=== PATIENT | male | born 1950 | race Caucasian/White ===

== ENCOUNTER 2022-05-18 13:45 | Outpatient (RCR) | payer MEDICARE, BC, SELFPAY ==
--- NOTE | 2022-04-19 09:03 | PT.OPEX ---
PT [place] [facility] Eval PT [facility] Out[facility] Eval Start: 04/19/22 07:45 Freq: Status: Active Protocol: Document 04/19/22 07:46 LUDWIG (Rec: 04/19/22 07:57 LUDWIG [id number]) E-signed By Tosin Godoy, PT Physical Therapy Outpatient Evaluation Insurance Information Recert Due Date 07/12/22 Insurance Name Medicare B,[employer] Medical Diagnosis Right hip bursitis Treating Diagnosis Right hip pain, limited hip ROM, impaired glut strength, antalgic gait, impaired balance Referring MD Kelly Subjective Subjective Jose Maria reports to PT with primary complaint of right hip pain with gradual and insidious onset about 4 weeks ago. He has a history of B RAHAT in 2009 and 2011. He has started to use a SEC for walking assistance as his R leg occasionally feels that it might give out d/t the pain when he is up and walking around however denies any falls or LOB at this time. He notes pain is worse with standing and walking for >10 min and usually goes away with sitting. No pain with sleeping or laying on either side. He is in the middle of being treated for polymyalgia with prednisone. He saw Dr. Kelly 2 weeks ago with repeat x-rays and determined that components are sound. He was diagnosed with right hip bursitis at that time. PMH: polymyalgia, B RAHAT posterior approach for both Pain Comments 8/10 worst walking/standing 1-2/10 sitting/resting Date of Last Physician Visit 04/05/22 Preferred Name Jose Maria Precautions Therapy Limitations/Systems Review Not Limited Objective Other/Pertinent Objective Gait: transitions from using SEC in R and L UE, reverse Trendelenburg R LE, limited terminal hip extension B R>L, limited stance time R LE SL balance: -L level pelvis, 4 sec without UE support -R Trendelenburg stance, unable without UE support Hip ROM R/L: -flexion 90/90 -extension neutral/5 -IR 0/5 -ER 25/30 Aashish test: B (R>L) rectus femoris, TFL and psoas MMT (R/L) -flexion 4-/4 -ER 4-/4+ -abd 4-/4+ -ext 4/4+ TTP R greater trochanter, increased tone R glut med Log roll, EDUARDO/FADIR: - R LE Functional Test Performed & Score LEFS: Assessment Assessment/Impression Patient is a 71 year old male presenting to physical therapy for evaluation and treatment of right hip pain. Patient presents with Right hip pain, limited hip ROM, impaired glut strength, antalgic gait, impaired balance. 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 Patient appears motivated to participate in PT and presents with good prognosis to improve mobility, strength, proprioception and return to functional activities with skilled physical therapy intervention. 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 Patient will be able to stand/ walk for >40 minutes with <1/ 10 pain in order to carry out outdoor chores Patient will demonstrate at least 4+/5 glut med strength in order to improve single leg stance activities and walking Treatment Plan/Direct Interventions Gait Training,Ice/Cold/ Vasopneumatic,Joint Mobilization,Manual Therapy, Neuromuscular Re-ed,Self-Care/ Home Management,Therapeutic Activities,Therapeutic Exercises Frequency/Duration 1x/wk for 6 weeks with additional 4 session prn based on functional progress Patient Will Be Discharged From Therapy Completion of LTG(s), Independent w/HEP, Independently Progressing Evaluation Billing Untimed Code Treatment Minutes 18 Complexity Low Certification Information Initial Certification Date 04/19/22 Ending Certification Date 07/12/22
== END 2022-07-12 12:16 | disposition home or self-care (01) ==
PROVIDERS: PCP Family Medicine; Visit Provider Orthopaedic Surgery
DX: M70.71 Other bursitis of hip, right hip (principal); Z51.89 Encounter for other specified aftercare
CPT/HCPCS: 97110; 97140; 97161; 97535

== ENCOUNTER 2022-05-31 10:57 | Outpatient (CLI) | payer MEDICARE, BC, SELFPAY ==
[2022-05-31 13:38] LABS: Albumin* 4.6 g/dL (3.3-5.0); Chloride* 103 mmol/L (96-114); Sodium* 137 mmol/L (135-149)
[2022-05-31 13:39] LABS: Potassium* 4.6 mmol/L (3.6-5.1)
[2022-05-31 13:40] LABS: Cholesterol* 235 mg/dL (90-199)
[2022-05-31 13:41] LABS: Alanine Aminotransferase* 17 U/L (4-50); Alkaline Phosphatase* 124 U/L (40-150); Aspartate Amino Transferase* 23 U/L (12-35); Bilirubin Total* 0.6 mg/dL (0.1-1.5); Blood Urea Nitrogen* 19 mg/dL (7-30); Carbon Dioxide* 21 mmol/L (20-32); Creatinine* 0.7 mg/dL (0.5-1.5); Estimated Glomerular Filt Rate 97 ml/min; Glucose* 106 mg/dL (60-115); Total Protein* 7.2 g/dL (6.0-8.3); Triglycerides* 194 mg/dL (40-149)
[2022-05-31 13:42] LABS: HDL Cholesterol* 52 mg/dL (>=40); LDL Cholesterol Calculated 144 mg/dL (<100)
== END 2022-05-31 10:58 | disposition home or self-care (01) ==
PROVIDERS: PCP Family Medicine; Visit Provider Family Medicine
DX: Z01.818 Encounter for other preprocedural examination (principal); E78.5 Hyperlipidemia, unspecified; I10 Essential (primary) hypertension
CPT/HCPCS: 80053; 80061

== ENCOUNTER 2022-06-09 11:10 | Day surgery (SDC) | payer MEDICARE, BC, SELFPAY ==
[2022-06-09] MEDS: TETRACAINE 0.5% OPHTH 1 DROP EYE-LEFT (11:42)
[2022-06-09] MEDS: KETOROLAC OPHTH 0.5% 1 DROP EYE-LEFT ×3 (11:45→11:55)
[2022-06-09 11:55] VITALS: BP 172/92; PULSE 94; RESP 18; TEMP 36.9; O2SAT 96; BMI 34.3
[2022-06-09] MEDS: lidocaine HCL 2 % MULTIDOSE 20 ML VIAL 5 ML INJECTION (13:43)
[2022-06-09] MEDS: HYALURONIDASE,OVINE 200 UNIT/ML VIAL INJECTION (13:43)
[2022-06-09] MEDS: TETRACAINE 0.5% OPHTH 2 DROP EYE-LEFT (13:46)
[2022-06-09] MEDS: BALANCED SALT IRRIG SOLN 15 ML EYE-LEFT (13:47)
[2022-06-09] MEDS: BRIMONIDINE TARTRATE 0.2% OPHTH 1 DROP EYE-LEFT (14:06)
--- NOTE | 2022-06-09 14:14 | W.ANESCHARGE ---
Anesthesia Charges Start Date/Time Anesthesia Start Date: 06/09/22 Anesthesia Start Time: 13:28 Stop Date/Time Anesthesia Stop Date: 06/09/22 Anesthesia Stop Time: 14:11 Summary Emergency: No Extremes of Age: Over 69-CPT 78782
[2022-06-09 14:17] VITALS: BP 148/98; PULSE 88; RESP 18; TEMP 36.6; O2SAT 95
--- NOTE | 2022-06-09 14:35 | P.PCN_ITS ---
Procedure Note Date Seen: 06/09/22 Date of procedure: 06/09/[address] [facility] bill your pro fee for this procedure?: No Procedure: NAME OF PROCEDURE Andree phacoemulsification, left eye, with posterior chamber lens implant. PREOPERATIVE DIAGNOSIS Nuclear sclerotic cortical combined cataract, left eye. POSTOPERATIVE DIAGNOSIS Nuclear sclerotic cortical combined cataract, left eye. INDICATIONS FOR PROCEDURE The patient has noted that his vision in the left eye is failing. Severity 8/10. Unable to correct with glasses/contact lenses; has disabling night glare when driving, difficulty reading. Because of this, the patient elected to proceed with surgical repair. I have explained the risks, benefits, alternative treatments to the patient including possible loss of the eye under correction, over correction, need for more surgery. The patient understands, accepts, and elects to proceed with surgical repair. PROCEDURE The left eye was dilated with a combination 1% Mydriacyl, 2.5% phenylephrine with topical Ocufen and Vigamox applied to the corneal surface. The patient was brought to the main operating room where under IV sedation, after pausing to identify the correct patient, correct intraoperative lens, power 33.5 diopters, the left eye was prepped and draped in usual sterile fashion for intraocular surgery. A lid speculum was placed and a paracentesis created at 6 o'clock. The chamber was filled with OVD and entered temporally with a keratome. A continuous tear capsulotomy was performed. The nucleus was hydrodissected and emulsified with local anesthetic and emulsified in a chop technique in the capsular bag. Residual cortex was cleaned. The capsule was clear. At this point, ZCBOO 33.5 diopter posterior chamber lens implant was injected into the capsular bag and was well centered. Residual OVD was cleaned from behind the im plant from the capsular bag. The incision hydrated and noted to be leak free. Topical Alphagan, pilocarpine, and Vigamox were applied to the corneal surface and the patient returned to recovery in good condition having tolerated the procedure well. CONDITION ON DISCHARGE Satisfactory. Surgeon: Eric Shaffer MD
--- NOTE | 2022-06-09 14:37 | W.ANESCHARGE ---
Anesthesia Charges Start Date/Time Anesthesia Start Date: 06/09/22 Anesthesia Start Time: 13:28 Stop Date/Time Anesthesia Stop Date: 06/09/22 Anesthesia Stop Time: 14:11 Summary Emergency: No Extremes of Age: Over 69-CPT 93954
== END 2022-06-09 22:00 | disposition home or self-care (01) ==
LOC: OR 11:11
PROVIDERS: PCP Family Medicine; Visit Provider Ophthalmology
PROC: (CPT 66984; principal; 2022-06-09 12:30)
DX: H25.812 Combined forms of age-related cataract, left eye (principal)
CPT/HCPCS: 66984; 00142; 99100; A9270; J2150; J2250; J3010; J3471; S0020; V2632

== ENCOUNTER 2022-07-07 11:08 | Day surgery (SDC) | payer MEDICARE, BC, SELFPAY ==
[2022-07-07] MEDS: KETOROLAC OPHTH 0.5% 1 DROP EYE-RIGHT ×3 (11:30→12:01)
[2022-07-07] MEDS: TETRACAINE 0.5% OPHTH 1 DROP EYE-RIGHT ×2 (11:30→12:36)
[2022-07-07 11:35] VITALS: BP 185/115; PULSE 94; RESP 16; TEMP 37.7; O2SAT 99; BMI 35.1
[2022-07-07] MEDS: SODIUM CHLORIDE 0.9 % (FLUSH) 10 ML SYRINGE IVF (11:52)
[2022-07-07] MEDS: lidocaine HCL 2 % MULTIDOSE 20 ML VIAL 5 ML INJECTION (12:35)
[2022-07-07] MEDS: HYALURONIDASE,OVINE 200 UNIT/ML VIAL INJECTION (12:35)
[2022-07-07] MEDS: BALANCED SALT IRRIG SOLN 15 ML EYE-RIGHT (12:40)
[2022-07-07] MEDS: BRIMONIDINE TARTRATE 0.2% OPHTH 1 DROP EYE-RIGHT (12:55)
--- NOTE | 2022-07-07 13:01 | W.ANESCHARGE ---
Anesthesia Charges Start Date/Time Anesthesia Start Date: 07/07/22 Anesthesia Start Time: 12:29 Stop Date/Time Anesthesia Stop Date: 07/07/22 Anesthesia Stop Time: 13:00 Summary Emergency: No Extremes of Age: Over 69-CPT 73671
[2022-07-07 13:05] VITALS: BP 133/84; PULSE 76; RESP 16; TEMP 37.1; O2SAT 94
--- NOTE | 2022-07-07 13:08 | PM.PROC ---
Procedure Note Date Seen: 07/07/22 Will [facility] bill your pro fee for this procedure?: No Procedure: NAME OF PROCEDURE Andree phacoemulsification, right eye, with posterior chamber lens implant. PREOPERATIVE DIAGNOSIS Nuclear sclerotic cortical combined cataract, right eye. POSTOPERATIVE DIAGNOSIS Nuclear sclerotic cortical combined cataract, right eye. INDICATIONS FOR PROCEDURE The patient has noted that his vision in the right eye is failing. Severity 7/10. Unable to correct with glasses/contact lenses; has disabling night glare when driving, difficulty reading. Because of this, the patient elected to proceed with surgical repair. I have explained the risks, benefits, alternative treatments to the patient including possible loss of the eye under correction, over correction, need for more surgery. The patient understands, accepts, and elects to proceed with surgical repair. PROCEDURE The right eye was dilated with a combination 1% Mydriacyl, 2.5% phenylephrine with topical Ocufen and Vigamox applied to the corneal surface. The patient was brought to the main operating room where under IV sedation, after pausing to identify the correct patient, correct intraoperative lens, power disease see due 33.5 diopters, the right eye was prepped and draped in usual sterile fashion for intraocular surgery. A lid speculum was placed and a paracentesis created at 12 o'clock. The chamber was filled with OVD and entered temporally with a keratome. A continuous tear capsulotomy was performed. The nucleus was hydrodissected and emulsified with local anesthetic and emulsified in a chop technique in the capsular bag. Residual cortex was cleaned. The capsule was clear. At this point, ZCBOO 33.5 diopter posterior chamber lens implant was injected into the capsular bag and was well centered. Residual OVD was cleaned from behind the implant from the capsular bag. The incision hydrated and noted to be leak free. Topical Alphagan, pilocarpine, and Vigamox were applied to the corneal surface and the patient returned to recovery in good condition having tolerated the procedure well. CONDITION ON DISCHARGE Satisfactory. Surgeon: Eric Shaffer MD
== END 2022-07-07 13:23 | disposition home or self-care (01) ==
PROVIDERS: PCP Family Medicine; Visit Provider Ophthalmology
PROC: (CPT 66984; principal; 2022-07-07 12:30)
DX: H25.11 Age-related nuclear cataract, right eye (principal)
CPT/HCPCS: 66984; 00142; 99100; A9270; J2150; J2250; J2704; J3010; J3471; S0020; V2632

== ENCOUNTER 2022-10-05 07:01 | Outpatient (CLI) | payer MEDICARE, BC, SELFPAY ==
--- NOTE | 2022-10-05 07:15 | CRLHL7_ITS ---
For Patients: As a result of the 21st Century Cures Act, medical imaging exams and procedure reports are released immediately into your electronic medical record. You may view this report before your referring provider. If you have questions, please contact your health care provider. INDICATION: Low back pain. Leg pain. COMPARISON: None. TECHNIQUE: Sagittal T1, T2, and STIR sequences. Axial T1 and T2 weighted sequences. FINDINGS: Normal vertebral body alignment. No fractures. No vertebral body loss of height. No spondylolisthesis. No ligamentous injury. No suspicious osseous lesions. Normal conus terminates at L2. Congenitally short pedicles contributes to overall narrowed caliber of spinal canal. T12-L1 L1-2: No spinal canal or neural foraminal narrowing. L2-3: Disc degeneration and posterior disc bulge. Combined with ligamentum flavum facet hypertrophy, there is moderate severe narrowing of spinal canal. Mild narrowing of the left neural foramen. No narrowing of the right neural foramen. Mild facet arthropathy. L3-4: Disc degeneration posterior disc herniation. Moderate severe narrowing of the spinal canal. Left subarticular recess narrowing with impingement of the traversing left L4 nerve root. Mild right and moderate left neural foraminal narrowing. Potential impingement of the left L3 nerve root. Moderate facet arthropathy. L4-5: Disc degeneration. Posterior disc bulge. Mild narrowing of the spinal canal. Left subarticular recess narrowing with potential impingement of the traversing left L5 nerve root. No narrowing of the right neural foramen. Mild to moderate narrowing of the left neural foramen. Mild facet arthropathy. L5-S1: Disc degeneration. Diffuse disc bulge. No narrowing of spinal canal. No impingement of the traversing S1 nerve roots. Moderate severe narrowing of bilateral foramina. Moderate facet arthropathy. Degenerative changes of the SI joints. IMPRESSION: 1. Normal alignment. No fractures. 2. Congenitally short pedicles. 3. Lumbar spinal S. 4. At L2-3, moderate to severe narrowing of spinal canal. Mild narrowing of the left neural foramen 5. At L3-4, moderate to severe narrowing of the spinal canal. Left subarticular recess narrowing with tension to the traversing left L4 nerve root. Moderate narrowing of the left neural foramina 6. At L4-5, mild narrowing of spinal canal. Left subarticular recess narrowing with potential impingement of the traversing left L5 nerve root. Mild to moderate narrowing of the left neural foramina 7. At L5-S1, moderate to severe narrowing of the bilateral neural foramina. Potential impingement of the exiting L5 nerve roots. Dictated by Felice Solis MD @ 10/05/2022 4:18:16 PM (Electronically Signed)
== END 2022-10-05 07:02 | disposition home or self-care (01) ==
LOC: MRI 07:02
PROVIDERS: PCP Family Medicine; Visit Provider Internal Medicine Rheumatology
DX: M54.50 Low back pain, unspecified (principal); M51.26 Other intervertebral disc displacement, lumbar region; M51.27 Other intervertebral disc displacement, lumbosacral region
CPT/HCPCS: 72148

== ENCOUNTER 2022-10-06 11:38 | Outpatient (CLI) | payer MEDICARE, BC, SELFPAY ==
[2022-10-06 11:46] VITALS: BP 187/103; PULSE 97; RESP 16; O2SAT 96
[2022-10-06] MEDS: TETRACAINE 0.5% OPHTH 1 DROP EYE-BOTH ×2 (11:54→11:59)
[2022-10-06] MEDS: BRIMONIDINE TARTRATE 0.2% OPHTH 1 DROP EYE-BOTH ×2 (11:57→13:04)
--- NOTE | 2022-10-06 13:50 | PM.PROC ---
Procedure Note Date Seen: 10/06/22 Date of procedure: 10/06/22 Will [facility] bill your pro fee for this procedure?: No Procedure Description: NAME OF PROCEDURE YAG laser capsulotomy, bilateral eyes. PREOP DIAGNOSIS Obscuring lens capsule, bilateral eyes. POSTOP DIAGNOSIS Obscuring lens capsule, bilateral eyes, repaired. INDICATIONS FOR PROCEDURE This patient has experienced a painless progressive loss of vision in both eyes. Carlos Marie MD was unable to improve this patients corrective lenses that would give them clear vision. For that reason, this patient elected to proceed with laser capsulotomy on both eyes. I explained the risks, benefits, alternative treatments to them including possible need for exchanging the implant. The patient understands, accepts, and elects to proceed with surgical repair. PROCEDURE After both pupils were dilated with 1% Mydriacyl, topical anesthetic was applied. The patient was positioned for the YAG laser where after placing a laser lens on the right eye , a standard cruciform capsulotomy was performed utilizing 37 pulses at 2.2 mJ. After placing a laser lens on the left eye , a standard cruciform capsulotomy was performed utilizing 67 pulses at 2.2 mJ. The patient was then discharged in good condition, having tolerated the procedure well. Condition on discharge was satisfactory. Surgeon: Eric Shaffer MD
== END 2022-10-06 13:11 | disposition home or self-care (01) ==
LOC: OP CLINIC 11:39 → EYE PRC 11:42
PROVIDERS: PCP Family Medicine; Visit Provider Ophthalmology
DX: H26.9 Unspecified cataract (principal)
CPT/HCPCS: 66821; A9270

== ENCOUNTER 2022-10-14 07:47 | Outpatient (CLI) | payer MEDICARE, BC, SELFPAY ==
--- NOTE | 2022-10-14 08:00 | CRLHL7_ITS ---
For Patients: As a result of the Century Cures Act, medical imaging exams and procedure reports are released immediately into your electronic medical record. You may view this report before your referring provider. If you have questions, please contact your health care provider. Indication: Unspecified exophthalmos Technique: Helical axial sections were obtained through the orbits without intravenous contrast material. Coronal and sagittal reformats. Comparison: None available Findings: The bony orbits and regional facial bones appear grossly intact, without evidence of acute fracture. The orbits and their contents appeared normal in appearance. The globes appear symmetric, and within normal limits in size, configuration, and position. Incidental lens implants are noted bilaterally. The optic nerve sheath complexes do not appear enlarged. The extra-axial muscles are symmetric, and normal in course and caliber. No focal mass, abnormal fluid collection, or suspicious inflammatory stranding within the intraconal or extraconal spaces. No suspicious findings in the preseptal/periorbital soft tissues. Lobulated mucosal thickening is noted throughout the right maxillary sinus. Mild mucosal thickening is noted throughout the frontal recesses. No paranasal sinus air-fluid level. Small bilateral marci lamella and paradoxical middle turbinates. Rightward nasal septal deviation with laterally projecting septal spur deforming the right inferior nasal turbinate. Included intracranial structures are unremarkable for technique. Clear visualized mastoid air cells and middle ear cavities. Unremarkable TMJs. Impression: 1. Unremarkable CT appearance of the bilateral globes and orbits. 2. Lobulated mucosal thickening in the right maxillary sinus. Mild mucosal thickening along the frontal recesses. 3. Rightward nasal septal deviation with laterally projecting bone spur deforming the right inferior nasal turbinate. Please note that all CT scans at this facility use dose modulation, iterative reconstruction, and/or weight-based dosing when appropriate to reduce radiation dose to as low as reasonably achievable. Dictated by Elma Ya MD @ 10/14/2022 9:31:10 AM (Electronically Signed)
== END 2022-10-14 07:48 | disposition home or self-care (01) ==
PROVIDERS: PCP Family Medicine; Visit Provider Internal Medicine Rheumatology
DX: H05.20 Unspecified exophthalmos (principal); J32.0 Chronic maxillary sinusitis; J34.2 Deviated nasal septum
CPT/HCPCS: 70480

== ENCOUNTER 2022-11-01 10:39 | Outpatient (CLI) | payer MEDICARE, BC, SELFPAY ==
[2022-11-01 11:29] LABS: C Reactive Protein* 1.7 mg/dL (0.5-1.0)
[2022-11-01 11:36] LABS: Erythrocyte SedimentationRate* 6 mm/hr (2-15)
== END 2022-11-01 10:40 | disposition home or self-care (01) ==
PROVIDERS: PCP Family Medicine; Visit Provider Internal Medicine Rheumatology
DX: M35.3 Polymyalgia rheumatica (principal)
CPT/HCPCS: 36415; 85651; 86140

== ENCOUNTER 2022-12-30 13:00 | Outpatient (RCR) | payer MEDICARE, BC, SELFPAY ==
--- NOTE | 2022-11-05 12:04 | PT.OPEX ---
PT [place] Outpatient Eval PT [facility] Outpatient Eval Start: 11/05/22 10:01 Freq: Status: Active Protocol: Document 11/05/22 10:54 ARR (Rec: 11/05/22 12:00 ARR [id number]) E-signed By Linda Perez DPT Physical Therapy Outpatient Evaluation Insurance Information Recert Due Date 02/03/23 Insurance Name Medicare B Medical Diagnosis M48.00 spinal stenosis, site unspecified Treating Diagnosis M48.08 lumbar spinal stenosis M79.604 pain in right leg M79..605 pain in left leg Referring MD Nasim Atkinson MD ([facility]) Subjective Subjective Symptoms ongoing 1+ years. Had pain in legs/hips and shoulders. Went to MD and was diagnosed with PMR and went on prednisone x 1 year. Took away pain in shoulders but leg pain never really went away. Had MRI and CT scans completed - saw Dr Atkinson and was referred to PT. Sx's would alternate sides back and forth . Thought it was maybe a hip problem. Did have PT for R hip bursitis but never really went away. This pain didn't change with prednisone and sed rate has been slightly elevated so MD feels likely correlated with low back vs from prednisone. Location of pain: R lateral hip and thigh to knee. Occasionally will go to the left lateral thigh as well. Increases in pain: turning/pivoting and standing. Decreases in pain: walking and getting moving in the AM. Also feels that legs have gotten weaker. Has SEC but rarely uses it. PMHx: PMR recently reducing down from a 1 yr bout of prednisone (on 10 mg), spinal stenosis, peyronie?s disease, HTN. Surgical history for: L RAHAT, R RAHAT, lumbar discectomy 1994, L knee scope. LS MRI: 4. At L2-3, moderate to severe narrowing of spinal canal. Mild narrowing of the left neural foramen 5. At L3-4, moderate to severe narrowing of the spinal canal . Left subarticular recess narrowing with tension to the traversing left L4 nerve root. Moderate narrowing of the left neural foramina 6. At L4-5, mild narrowing of spinal canal. Left subarticular recess narrowing with potential impingement of the traversing left L5 nerve root. Mild to moderate narrowing of the left neural foramina 7. At L5-S1, moderate to severe narrowing of the bilateral neural foramina. Potential impingement of the exiting L5 nerve roots. Objective Other/Pertinent Objective Posture: loss of LS lordosis, elevated sh girdle on R side, elevated IC on R by 2 thumbwidths. inc'd knee flexion 10-15* bilat. SLS (30 sec): <5 sec ea LE with R lateral thigh pain reproduction with attempts to stand Gait: lateral trunk lean to the L with pelvic drop bilaterally during stance phase. Reduced heel-toe pattern tending to land foot flat using shuffling type gait pattern. Minimal hip ext bilat RANGE OF MOTION: Lumbar ROM: reduced -Flx: reduced LS segmental mobility fingertips to shins -Ext: 75% limitations with reproductions of posterior thigh tightness -R Rot: 50% limitation -L Rot: 50% limitation LE ROM (R/L): -Hip ER90: 50 R and L -Hip IR90: 20 R / 0 L -Hip flex: 90 R / 100 L -HIp flexion sidelying passively: 30* flexion on R / 20* on L -Hip Abd supine: <30 ea side -Knee Ext: lacking 10-15* blat STRENGTH: LE Strength (R/L) -Glut medius: within available range 2+ LE FLEXIBLITY: -Hamstring: + bilat -Piriformis: + bilat -Prone knee bend: + bilat in sidelying -Hip abd: + bilat -Aashish Test: + bilat in sidelying (pos for quad and HF tightness) Functional Test Performed & Score 30 sec chair stand test: 8 reps in 30 seconds no UE assist LEFS score 25/80 Assessment Assessment/Impression Pt is a 72 y/o male who presents with concerns of bilateral leg pain with R>L, LE weakness, and difficulty walking. Signs and symptoms likely indicating / consistent with lumbar spinal stenosis. Pt also has significant hip tightness with lack of hip extension nearly 20-30* from neutral bilaterally, hip mobility impairments are also noted into hip ER and flexion which are also likely contributing to distal LE symptoms. Patient also gait impairments including pelvic drop during stance phase on R LE likely also contributing to lateral thigh pain during gait Skilled PT intervention is necessary for use of therapeutic exercise manual therapy, neuromuscular re- education, gait training, and therapeutic activity. Functional impairments include difficulty with: walking and standing. See appropriate sections of PT eval for complete list of goals and POC . D/C plan and criteria is for pt to achieve the goals as listed below or until max rehab potential is met. Pt was agreeable with plan of care and goals established. Plan of Care Physical Therapy Goals STG (within 7 visits) 1) Pt will initiate HEP without increased pain/ symptoms 2) Pt will demonstrate ability to isometrically activate TA and gluts with minimal compensations in order to improve lumbopelvic stability 3) Pt will demonstrate ability to complete 6 MWT with least restrictive device no more than 4 standing rest breaks with pain not exceeding 4/10 for improved community mobility LTG (within 14 visits) 1) Pt will be indep with HEP for intermediate accountant management of pain/symptoms 2) Pt will demonstrate ability to complete 6 MWT with least restrictive device no more than 2 standing rest breaks with pain not exceeding 2/10 for improved community mobility 3) Pt will report resolution of sharp R lateral thigh pain during ambulation 4) Pt will report at least 60% improvement in pain/symptoms since start of PT for return to PLOF 5) Pt will demonstrate ability to maintain activation of TA and gluts with minimal compensations during dynamic lower/upper body mvmts in order to improve lumbopelvic stability Treatment Plan/Direct Interventions Gait Training,Joint Mobilization,Manual Therapy, Neuromuscular Re-ed,Self-Care/ Home Management,Therapeutic Activities,Therapeutic Exercises Frequency/Duration 2x/wk x 14 visits in 90 days Patient Will Be Discharged From Therapy Skills [facility],Independent w/ HEP Evaluation Billing Untimed Code Treatment Minutes 20 Complexity Moderate Certification Information Initial Certification Date 11/05/22 Ending Certification Date 02/03/23 Provider Signature Shows Agreement With POC & Medical Necessity Physician Signature & Date Requested Please Sign/Date Here Physician Comment/Change : Physician NPI Number #
== END 2022-12-30 14:36 | disposition home or self-care (01) ==
PROVIDERS: PCP Family Medicine; Visit Provider Family Medicine
DX: M48.00 Spinal stenosis, site unspecified (principal); M79.604 Pain in right leg; M79.605 Pain in left leg; Z51.89 Encounter for other specified aftercare
CPT/HCPCS: 97110; 97112; 97140; 97162

== ENCOUNTER 2023-05-31 06:51 | Outpatient (CLI) | payer MEDICARE, BC, SELFPAY | END 2023-05-31 06:52 | disposition home or self-care (01) | LOC: INJ CL 06:52 | PROVIDERS: PCP Family Medicine; Visit Provider Family Medicine | DX: M54.16 Radiculopathy, lumbar region (principal); M48.062 Spinal stenosis, lumbar region with neurogenic claudication; M51.36 Other intervertebral disc degeneration, lumbar region | CPT/HCPCS: 62323; J0702; Q9966 ==

== ENCOUNTER 2023-07-05 08:17 | Outpatient (CLI) | payer MEDICARE, BC, SELFPAY | END 2023-07-05 08:18 | disposition home or self-care (01) | LOC: NFLDREF 07-08 06:32 | PROVIDERS: PCP Family Medicine; Referring Provider Family Medicine; Visit Provider Family Medicine | DX: Z00.00 Encounter for general adult medical examination without abnormal findings (principal); E78.5 Hyperlipidemia, unspecified; I10 Essential (primary) hypertension; E66.9 Obesity, unspecified; N40.1 Benign prostatic hyperplasia with lower urinary tract symptoms | CPT/HCPCS: 80053; 80061; 84153 ==

== ENCOUNTER 2023-08-30 07:30 | Outpatient (CLI) | payer MEDICARE, BC, SELFPAY | END 2023-08-30 07:31 | disposition home or self-care (01) | LOC: INJ CL 07:31 | PROVIDERS: PCP Family Medicine; Visit Provider Family Medicine | DX: M54.16 Radiculopathy, lumbar region (principal); M51.36 Other intervertebral disc degeneration, lumbar region | CPT/HCPCS: 62323; J0702; Q9966 ==

== ENCOUNTER 2023-10-19 09:48 | Outpatient (RCR) | payer MEDICARE, BC, SELFPAY ==
[2022-12-23 12:24] LABS: C Reactive Protein* 1.7 mg/dL (0.5-1.0)
[2022-12-23 12:58] LABS: Erythrocyte SedimentationRate* 7 mm/hr (2-15)
[2023-01-27 11:31] LABS: Erythrocyte SedimentationRate* 6 mm/hr (2-15)
[2023-04-12 09:54] LABS: Erythrocyte SedimentationRate* 8 mm/hr (2-15)
[2023-04-12 09:58] LABS: C Reactive Protein* 2.7 mg/dL (0.5-1.0)
[2023-05-17 11:36] LABS: C Reactive Protein* 1.5 mg/dL (0.5-1.0)
[2023-05-17 12:12] LABS: Erythrocyte SedimentationRate* 5 mm/hr (2-15)
[2023-07-19 10:41] LABS: C Reactive Protein* 2.5 mg/dL (0.5-1.0)
[2023-07-19 10:47] LABS: Erythrocyte SedimentationRate* 12 mm/hr (2-15)
[2023-08-24 10:12] LABS: C Reactive Protein* 4.4 mg/dL (0.5-1.0)
[2023-08-24 10:34] LABS: Erythrocyte SedimentationRate* 15 mm/hr (2-15)
[2023-09-28 13:16] LABS: Albumin* 4.5 g/dL (3.3-5.0)
[2023-09-28 13:19] LABS: Alanine Aminotransferase* 17 U/L (4-50); Aspartate Amino Transferase* 22 U/L (12-35); Creatinine* 0.8 mg/dL (0.5-1.5); Estimated Glomerular Filt Rate 93 ml/min
[2023-09-28 13:22] LABS: C Reactive Protein* 2.8 mg/dL (0.5-1.0)
[2023-09-28 13:56] LABS: Basophils Absolute Auto 0.04 K/uL (0.00-0.30); Basophils Percent Auto 0.5 % (0.0-3.0); Eosinophils Absolute Auto 0.06 K/uL (0.00-0.50); Eosinophils Percent Auto 0.7 % (0.0-7.0); Hematocrit 41.7 % (37.0-53.0); Hemoglobin* 13.4 gm/dL (13.5-17.5); Immature Granulocytes Abs Auto 0.02 K/uL (0.00-0.30); Immature Granulocytes Pct Auto 0.2 %; Lymphocytes Percent Auto 17.5 % (20-44); Mean Corpuscular HGB Conc 32 gm/dL (32-36); Mean Corpuscular Hemoglobin 29 pg (26-34); Mean Corpuscular Volume 89 fL (80-100); Monocytes Percent Auto 5.5 % (0.0-11.0); Neutrophils Percent Auto 75.6 % (42.0-72.0); Platelet Count* 373 K/uL (140-440); RDW Coefficient of Variation % 12.9 % (11.5-15.5); Red Blood Count 4.68 m/uL (4.30-5.90); White Blood Count* 8.84 K/uL (4.50-11.00)
[2023-09-28 14:03] LABS: Slide Review Reflex No
[2023-09-28 16:43] LABS: Erythrocyte SedimentationRate* 14 mm/hr (2-15)
[2023-10-19 10:15] LABS: Basophils Absolute Auto 0.04 K/uL (0.00-0.30); Basophils Percent Auto 0.5 % (0.0-3.0); Eosinophils Absolute Auto 0.12 K/uL (0.00-0.50); Eosinophils Percent Auto 1.6 % (0.0-7.0); Hematocrit 41.2 % (37.0-53.0); Hemoglobin* 13.5 gm/dL (13.5-17.5); Immature Granulocytes Abs Auto 0.01 K/uL (0.00-0.30); Immature Granulocytes Pct Auto 0.1 %; Lymphocytes Percent Auto 19.6 % (20-44); Mean Corpuscular HGB Conc 33 gm/dL (32-36); Mean Corpuscular Hemoglobin 29 pg (26-34); Mean Corpuscular Volume 89 fL (80-100); Monocytes Percent Auto 5.6 % (0.0-11.0); Neutrophils Percent Auto 72.6 % (42.0-72.0); Platelet Count* 331 K/uL (140-440); RDW Coefficient of Variation % 13.3 % (11.5-15.5); Red Blood Count 4.63 m/uL (4.30-5.90); White Blood Count* 7.45 K/uL (4.50-11.00)
[2023-10-19 10:27] LABS: Slide Review Reflex No
[2023-10-19 10:36] LABS: Albumin* 4.7 g/dL (3.3-5.0)
[2023-10-19 10:39] LABS: Aspartate Amino Transferase* 20 U/L (12-35); Creatinine* 0.8 mg/dL (0.5-1.5); Estimated Glomerular Filt Rate 93 ml/min
[2023-10-19 10:40] LABS: Alanine Aminotransferase* 14 U/L (4-50)
[2023-10-19 10:42] LABS: C Reactive Protein* 3.1 mg/dL (0.5-1.0)
[2023-10-19 11:24] LABS: Erythrocyte SedimentationRate* 7 mm/hr (2-15)
== END 2024-10-13 08:09 | disposition home or self-care (01) ==
LOC: LAB 09:48
PROVIDERS: PCP Family Medicine; Visit Provider Internal Medicine Rheumatology
DX: Z79.899 Other long term (current) drug therapy (principal); Z51.81 Encounter for therapeutic drug level monitoring; M35.3 Polymyalgia rheumatica
CPT/HCPCS: 36415; 80053; 80061; 82040; 82565; 84153; 84450; 84460; 85025; 85651; 86140

== ENCOUNTER 2024-03-06 06:46 | Outpatient (CLI) | payer MEDICARE, BC, SELFPAY ==
--- OUTSIDE RECORDS SUMMARY | 2024-03-06 06:49 | XMS_ITS | Clinical Summary ---
Author Organization [facility] s & [facility] Address [place], [place] [address] Care Team Providers Care Pin Sorter And Bagger Name Role Phone Christoph Best MD Primary Care Provider [phone] Allergies No known active allergies Medications Medication Sig Dispensed Refills Start Date End Date Status GLUCOSAMINE CHONDROITIN MAXSTR ORAL 1500mg daily 0 Active MULTIVITAMIN TAB take 1 tablet by oral route once daily with food 0 02/15/2007 Active LISINOPRIL 20 MG TABIndications:Unspecif ied essential hypertension take 1 tablet (20 mg) by oral route once daily 90 3 07/10/2008 Active LORAZEPAM 1 MG TAB one to two po daily prn 10 0 07/10/2008 Active HYDROCHLOROTHIAZIDE 25 MG TAB TAKE ONE TABLET DAILY 90 Tab 0 06/30/2009 Active Active Problems Problem Noted Date Diagnosed Date Impaired fasting glucose 08/06/2008 Obesity, unspecified 08/06/2008 Peyronie disease 08/06/2008 Unspecified essential hypertension 08/06/2008 DJD (degenerative joint disease) of hip 08/06/20 08 Corneal deformity, unspecified(371.70) 7 Overview: congenital corneal defect Encounters Date Type Department Care Team Description 02/22/2024 Transcribe Orders [facility] [address] [place] [address] Denny Smith MD from Last 3 Months Immunizations Name Administration Dates Next Due Influenza, IIV3 (Age >=3 years) 07/10/2008 Td (Age >=7 Years) 03/22/2002 Social History Tobacco Use Types Packs/Day Years Used Date Smoking Tobacco: Never Alcohol Use Standard Drinks/Week Comments Yes 0 (1 standard drink = 0.6 oz pur e alcohol) occas Social Connections Answer Date Recorded Frequency of Communication with Friends and Fami ly Not on file 05/31/2023 Sex and Gender Information Value Date Recorded Sex Assigned at Not on file Gender Identity Not on file Sexual Orientation Not on file Obstetrics History Last Filed Vital Signs Vital Sign Reading Time Taken Comments Blood Pressure 149/94 07/07/2009 11:13 AM CDT Pulse 93 07/07/2009 11:13 AM CDT Temperature - - Respiratory Rate - - Oxygen Saturation 98% 08/06/2008 8:24 AM C JAVA DEVELOPER Inhaled Oxygen Concentration - - Weight 113.8 kg (250 lb 12.8 oz) 2008 11:13 AM CDT Height 186.7 cm (6' 1.5) 03/03/2007 8:30 AM CDT Body Mass Index 32.64 03/03/2007 8:30 AM CDT Plan of Treatment Upcoming Encounters Date Type Department Care Team (Late st Contact Info) Description 03/06/2024 7:20 AM CDT Office Visit [facility] [address] [place] [phone] Denny Smith MD [address] [place] [address] Health Maintenance Due Date Last Done Comments Tdap 1960 Depression screening for age 12+ 1961 BMI (ht and wt on same day) for age 18+ 1967 Hepatitis C screening for ag e 18-79 1967 Colonoscopy through age 75 1994 Zoster (shingles) series for age 50+ (1 of 2) 1999 Tetanus booster 03/22/2012 03/22/2002 Lipids for age 45-75 08/06/2013 08/06/2008, 01/05/20 07 Medicare Wellness for age 65+ 2014 Pneumococcal series for age 65+ (1 of 1 - PCV) 2014 COVID-19 vaccine series ( season) 2023 07/07/2023, 07/08/2022, 03/23/2022, Additional history exists Influenza for age 65+ 05/13/2024 07/10/2008 Procedures Procedure Name Priority Date/Time Associated Diagnosis Comments LIPID PANEL Routine 08/06/2008 8:15 AM C JAVA DEVELOPER Impaired Fasting Glucose from Last 3 Months or Most Recently Relevant to Health Maintenance Results * (ABNORMAL) LIPID PANEL (08/06/2008 8:15 AM C JAVA DEVELOPER) CHOLESTEROL,TOTAL 203(H) 110 - 199 mg/dL [facility] TRIGLYCERIDES 159(H) <150 mg/dL [facility] HDL CHOLESTEROL 40(L) >40 mg/dL [facility] CHOL/HDL RATIO 5.07(H) <4.51 [facility] LDL CHOLESTEROL 131(H) <131 mg/dL [facility] PATIENT STATUS Fasting [facility] Blood specimen (specimen) BLOOD SPECIMEN / Unknown 08/06/2008 8:15 AM C JAVA DEVELOPER 08/06/2008 8:06 AM C JAVA DEVELOPER Yoel Johnson MD CHEMISTRY [facility] [address] [place] [address] from Last 3 Months or Most Recently Relevant to Health Maintenance Care Teams Pin Sorter And Bagger Relationship Specialty Start Date End Date Christoph Best MD [address] [place] [address] PCP - General Family Practice 02/22/24
== END 2024-03-06 06:47 | disposition home or self-care (01) ==
LOC: INJ CL 06:47
PROVIDERS: PCP Family Medicine; Visit Provider Family Medicine
DX: M54.16 Radiculopathy, lumbar region (principal); M51.36 Other intervertebral disc degeneration, lumbar region
CPT/HCPCS: 62323; J0702; Q9966

== ENCOUNTER 2024-07-23 10:30 | Outpatient (CLI) | payer MEDICARE, BC, SELFPAY ==
--- OUTSIDE RECORDS SUMMARY | 2024-07-26 07:07 | XMS_ITS | Clinical Summary ---
Author Organization [facility] s & [employer] Address [place], [place] [address] Care Team Providers Care Diving Judge Name Role Phone Christoph Best MD Primary Care Provider [phone] Allergies No known active allergies Medications Medication [...] hip 08/06/20 08 Corneal deformity, unspecified(371.70) 7 Overview (01/25/2007): congenital corneal defect Encounters Date Type Department Care Team Description 06/22/2024 Orders Only [facility] [address] [place] [address] Denny Smith MD <No scans attached> 06/22/2024 Transcribe Orders [facility] [address] [place] [address] Nasim Atkinson MD from Last 3 Months Immunizations Name [...] - Oxygen Saturation 98% 08/06/2008 8:24 AM PAGINATOR Inhaled Oxygen Concentration - - Weight 113.8 kg (250 lb 12.8 oz) 2008 11:13 AM CDT Height 186.7 cm (6' 1.5) 03/03/2007 8:30 AM CDT Body Mass Index 32.64 03/03/2007 8:30 AM CDT Plan of Treatment Upcoming Encounters Date Type Department Care Team (Late st Contact Info) Description 07/31/2024 8:20 AM PAGINATOR Office Visit [facility] at [facility] [address] [place] [phone] Denny Smith MD [address] [place] [address] Health Maintenance Due Date Last Done Comments [...] 65+ (1 of 1 - PCV) 2014 RSV vaccine for adults or (1 - 1-dose 75+ series) 2024 COVID-19 vaccine series (2023- season) 2024 07/07/2023, 07/08/2022, 03/23/2022, Additional history exists Influenza for age 65+ 05/13/2024 07/10/2008 Procedures Procedure Name Priority Date/Time Associated Diagnosis Comments LIPID PANEL Routine 08/06/2008 8:15 AM PAGINATOR Impaired Fasting Glucose from Last 3 Months or Most Recently Relevant to Health Maintenance Results * (ABNORMAL) LIPID PANEL (08/06/2008 8:15 AM PAGINATOR) CHOLESTEROL,TOTAL 203(H) 110 - 199 mg/dL [facility] TRIGLYCERIDES 159(H) <150 mg/dL [facility] HDL CHOLESTEROL 40(L) >40 mg/dL [facility] CHOL/HDL RATIO 5.07(H) <4.51 [facility] LDL CHOLESTEROL 131(H) <131 mg/dL [facility] PATIENT STATUS Fasting [facility] Blood specimen (specimen) BLOOD SPECIMEN / Unknown 08/06/2008 8:15 AM PAGINATOR 08/06/2008 8:06 AM PAGINATOR Yoel Johnson MD CHEMISTRY [facility] [address] [place], [place] [id number] from Last 3 Months or Most Recently Relevant to Health Maintenance Care Teams Diving Judge Relationship Specialty Start Date End Date Christoph Best MD [address] [place] [phone] PCP - General Family Practice 02/22/24
== END 2024-07-23 10:31 | disposition home or self-care (01) ==
LOC: NFLDREF 07-26 07:06
PROVIDERS: PCP Family Medicine; Referring Provider Family Medicine; Visit Provider Family Medicine
DX: Z00.00 Encounter for general adult medical examination without abnormal findings (principal); E78.5 Hyperlipidemia, unspecified; I10 Essential (primary) hypertension; Z12.5 Encounter for screening for malignant neoplasm of prostate
CPT/HCPCS: 80053; 80061

== ENCOUNTER 2024-07-31 07:43 | Outpatient (CLI) | payer MEDICARE, BC, SELFPAY ==
--- OUTSIDE RECORDS SUMMARY | 2024-07-31 07:45 | XMS_ITS | Clinical Summary ---
Author Organization [facility] s & [facility] Address [place], [place] [address] Care Team Providers Care Shoe Designer Name Role Phone Christoph Best MD Primary Care Provider [phone] Allergies No known active allergies Medications Medication [...] Encounters Date Type Department Care Team Description 07/26/2024 Travel 06/22/2024 Orders Only [facility] [address] [place], [place] [phone] Denny Smith MD <No scans attached> 06/22/2024 Transcribe Orders [facility] [address] [place], [place] [phone] Nasim Atkinson MD from Last 3 Months [...] - Oxygen Saturation 98% 08/06/2008 8:24 AM [employer] Inhaled Oxygen Concentration - - Weight 113.8 kg (250 lb 12.8 oz) 2008 11:13 AM CDT Height 186.7 cm (6' 1.5) 03/03/2007 8:30 AM CDT Body Mass Index 32.64 03/03/2007 8:30 AM CDT Plan of Treatment Upcoming Encounters Date Type Department Care Team (Late st Contact Info) Description 07/31/2024 8:20 AM [employer] Office Visit [facility] [address] [place] [phone] Denny Smith MD [facility] [place] [address] Health Maintenance Due Date Last Done Comments Tdap 1960 Depression screening for age 12+ 1961 BMI (ht and wt on same day) for age 18+ 1967 Hepatitis C screening for ag e 18-79 1967 Colonoscopy through age 75 1994 Zoster (shingles) series for age 50+ (1 of 2) 1999 Tetanus booster 03/22/2012 03/22/2002 Lipids for age 45-75 08/06/2013 08/06/2008, 01/05/20 Medicare Wellness for age 65+ 2014 Pneumococcal series for age 65+ (1 of 1 - PCV) 2014 RSV vaccine for adults or (1 - 1-dose 75+ series) 2024 COVID-19 vaccine series ( season) 2024 07/07/2023, 07/08/2022, 03/23/2022, Additional history exists Influenza for age 65+ 05/13/2024 07/10/2008 Procedures Procedure Name Priority Date/Time Associated Diagnosis Comments LIPID PANEL Routine 08/06/2008 8:15 AM [employer] Impaired Fasting Glucose from Last 3 Months or Most Recently Relevant to Health Maintenance Results * (ABNORMAL) LIPID PANEL (08/06/2008 8:15 AM [employer]) CHOLESTEROL,TOTAL 203(H) 110 - 199 mg/dL [facility] TRIGLYCERIDES 159(H) <150 mg/dL [facility] HDL CHOLESTEROL 40(L) >40 mg/dL [facility] CHOL/HDL RATIO 5.07(H) <4.51 [facility] LDL CHOLESTEROL 131(H) <131 mg/dL [facility] PATIENT STATUS Fasting [facility] Blood specimen (specimen) BLOOD SPECIMEN / Unknown 08/06/2008 8:15 AM [employer] 08/06/2008 8:06 AM [employer] Yoel Johnson MD CHEMISTRY [facility] [address] [place] [address] from Last 3 Months or Most Recently Relevant to Health Maintenance Care Teams Shoe Designer Relationship Specialty Start Date End Date Christoph Best MD [address] [place] [phone] PCP - General Family Practice 02/22/24
== END 2024-07-31 07:44 | disposition home or self-care (01) ==
LOC: INJ CL 07:43
PROVIDERS: PCP Family Medicine; Visit Provider Family Medicine
DX: M54.16 Radiculopathy, lumbar region (principal); M51.369 Other intervertebral disc degeneration, lumbar region without mention of lumbar back pain or lower extremity pain
CPT/HCPCS: 62323; J0702; Q9966

== ENCOUNTER 2025-08-22 11:02 | Outpatient (CLI) | payer MEDICARE, BC, SELFPAY ==
[2025-08-22 11:27] LABS: Hematocrit* 42.2 % (37.0-53.0); Hemoglobin* 14.2 gm/dL (13.5-17.5); Immature Granulocytes Abs Auto 0.01 K/uL (0.00-0.30); Immature Granulocytes Pct Auto 0.2 %; Lymphocytes Absolute Auto 1.00 K/uL (0.90-2.90); Mean Corpuscular HGB Conc 34 gm/dL (32-36); Mean Corpuscular Hemoglobin 31 pg (26-34); Mean Corpuscular Volume 93 fL (80-100); RDW Coefficient of Variation % 13.1 % (11.5-15.5); Red Blood Count* 4.53 m/uL (4.30-5.90); White Blood Count* 6.10 K/uL (4.50-11.00)
[2025-08-22 11:28] LABS: Slide Review Reflex No
[2025-08-22 11:45] LABS: Albumin* 4.6 g/dL (3.3-5.0)
[2025-08-22 11:48] LABS: Alanine Aminotransferase* 20 U/L (4-50); Aspartate Amino Transferase* 27 U/L (12-35); Creatinine* 0.9 mg/dL (0.5-1.5); Estimated Glomerular Filt Rate 89 ml/min
[2025-08-22 13:14] LABS: Erythrocyte SedimentationRate* 6 mm/hr (2-15)
== END 2025-08-22 11:03 | disposition home or self-care (01) ==
PROVIDERS: PCP Family Medicine; Visit Provider Internal Medicine Rheumatology
DX: Z51.81 Encounter for therapeutic drug level monitoring (principal); M35.3 Polymyalgia rheumatica
CPT/HCPCS: 36415; 82040; 82565; 84450; 84460; 85025; 85651; 86140